=== PATIENT | female | born 1975 | race African-American/Black ===

== ENCOUNTER → 2020-04-14 | Outpatient (CLI) | payer OTHER ==
--- NOTE | 2020-04-15 09:12 | Diagnostic Imaging Report ---
TECHNIQUE: Computed tomography imaging of the right elbow and forearm ELBOW was performed WITHOUT injected contrast. Dose modulation, iterative reconstruction, and/or weight based adjustment of the mA/kV was utilized to reduce the radiation dose to as low as reasonably achievable. HISTORY: Pain COMPARISON: None available. FINDINGS: No fracture. No lytic or blastic lesion. Mild degenerative arthrosis. Small calcified body in the elbow joint. Soft tissues are unremarkable. No mass or fluid collection. IMPRESSION: Mild elbow degenerative arthrosis. Signed by: Dr. Benitez Winston M.D. on 04/15/2020 9:09 AM
== END ==
LOC: CT 14:47
PROVIDERS: ATTEND Family Medicine
DX: S56.911D Strain of unspecified muscles, fascia and tendons at forearm level, right arm, subsequent encounter (principal)

== ENCOUNTER → 2022-06-28 | Outpatient (CLI) | payer OTHER | LOC: CT 14:46 | PROVIDERS: ATTEND Family Medicine | DX: S09.90XA Unspecified injury of head, initial encounter (principal) | CPT/HCPCS: 70450 ==